=== PATIENT | male | born 1975 | race Caucasian/White ===

== ENCOUNTER 2016-04-26 15:33 | Emergency (ER) | payer OTHER ==
[2016-04-26 15:40] VITALS: BP 133/77; PULSE 77; TEMP 98; BMI 23.6
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
== END 2016-04-26 16:30 | disposition home or self-care (01) ==
LOC: JERFT 15:33
DX: M54.42 Lumbago with sciatica, left side (principal); S16.1XXA Strain of muscle, fascia and tendon at neck level, initial encounter; V43.52XA Car driver injured in collision with other type car in traffic accident, initial encounter; Y93.89 Activity, other specified; Y92.410 Unspecified street and highway as the place of occurrence of the external cause; F17.210 Nicotine dependence, cigarettes, uncomplicated; G89.29 Other chronic pain
CPT/HCPCS: 99281-25

== ENCOUNTER 2017-03-26 11:16 | Emergency (ER) | payer OTHER ==
[2017-03-26 11:21] VITALS: BP 144/89; PULSE 87; TEMP 98.1; BMI 22.9
== END 2017-03-26 11:47 | disposition left against medical advice (07) ==
LOC: JER 11:16
DX: Z53.21 Procedure and treatment not carried out due to patient leaving prior to being seen by health care provider (principal)
CPT/HCPCS: 99281-25

== ENCOUNTER 2018-09-14 09:28 | Emergency (ER) | payer OTHER ==
[2018-09-14 09:34] VITALS: BP 144/95; PULSE 88; TEMP 98.5; BMI 22.2
--- NOTE | 2018-09-14 10:32 | PDOC ---
History of Present Illness - General Chief Complaint: Injury Stated Complaint: LEFT ELBOW PAIN Time Seen by Provider: 09/14/18 09:34 - History of Present Illness Initial Comments: 09/14/18 10:36 43 years old past medical history significant for GI bleed secondary to NSAIDs resents with pain to left elbow. Patient spell from a small ladder onto his left elbow approximately 2 weeks ago no injury sustained initially went to an urgent care where x-rays were performed with no clear fracture dislocation noted. Progressively worsening pain persistent constant worse with movement no alleviating factors. Past History - Past Medical History Allergies/Adverse Reactions: Allergies Allergy/AdvReac Type Severity Reaction Status Date / Time aspirin Allergy Verified 09/14/18 09:29 NSAIDS (Non-Steroidal Allergy Verified 09/14/18 09:29 Anti-Inflamma Home Medications: Ambulatory Orders NK [No Known Home Medication] 04/26/16 COPD: No GI Disorders: Yes (ulcers, diverticulitis) - Surgical History Abdominal Surgery: Yes (colon resection) Neurologic Surgery: Yes (laminectomy, left hand) - Immunization History Immunization Up to Date: Yes - Suicide/Smoking/Psychosocial Hx Smoking Status: Yes Smoking History: Current every day smoker Have you smoked in the past 12 months: Yes Number of Cigarettes Smoked Daily: 20 Information on smoking cessation initiated: Yes Hx Alcohol Use: No Drug/Substance Use Hx: No Substance Use Type: None Review of Systems - Review of Systems Comments:: 09/14/18 10:36 ROS: A complete review of 10 out of 10 review of systems is taken and is negative apart from what is previously mentioned below and in the HPI. *Physical Exam - Vital Signs Last Vital Signs Temp Pulse Resp BP Pulse Ox 98.5 F 88 18 144/95 98 09/14/18 09:28 09/14/18 09:28 09/14/18 09:28 09/14/18 09:28 09/14/18 09:28 - Physical Exam Comments: 09/14/18 10:37 Vitals: Triage Vital signs reviewed General Appearance: no acute distress, well nourished well developed, Head: Atraumatic, Cardiac: Regular rate and rhythym, no murmurs, no rubs, no gallops, Extremities: Full range of motion to all extremities, left elbow bursa swollen and inflamed noninfected no evidence of cellulitis pain with range of motion. Skin: Warm and dry, no rashes or lesions, no rash, no petechiae, neurovascularly intact distally. Neuro: Strength intact to all extremities, Sensation intact to all extremities, gait normal Psych: normal mood, normal affect ED Treatment Course - RADIOLOGY Radiology Studies Ordered: Category Date Time Status ELBOW-LEFT [RAD] Stat Radiology 09/14/18 09:42 Completed Medical Decision Making - Medical Decision Making 09/14/18 10:29 No fracture dislocation noted on x-ray patient with fall onto left elbow with bursitis ALLERGIC to aspirin and NSAIDs only able to take Tylenol for pain we' ll place in splint and provided patient with orthopedic follow-up to obtain an MRI for further evaluation and management Findings, the need for follow-up and strict return instructions discussed with patient. *DC/Admit/Observation/Transfer Diagnosis at time of Disposition: Elbow pain Qualifiers: Laterality: left Qualified Code(s): M25.522 - Pain in left elbow - Discharge Dispostion Disposition: HOME Condition at time of disposition: Stable Decision to Admit order: No - Referrals Referrals: Truman Pandya MD [Staff Physician] - - Patient Instructions Printed Discharge Instructions: Elbow Sprain Additional Instructions: Ice affected area 20 minutes on 20 minutes off. Okay to use a Demian compression wrap. Use splint during the day. Continue to use Tylenol for pain. Today proceed to Dr. Pandya office for follow-up appointment. Return to ED for any concerns. - Post Discharge Activity
== END 2018-09-14 10:45 | disposition home or self-care (01) ==
LOC: FER 09:28
DX: M25.522 Pain in left elbow (principal); F17.210 Nicotine dependence, cigarettes, uncomplicated
CPT/HCPCS: 73070-TC-LT-FY; 99283-25

== ENCOUNTER 2020-05-30 16:46 | Emergency (ER) | payer OTHER ==
[2020-05-30 16:55] VITALS: BP 150/88; PULSE 79; TEMP 97.6; BMI 23.2
[2020-05-30] MEDS ORDERED: METHOCARBAMOL 500 MG TABLET PO ONE (18:33)
[2020-05-30] MEDS ORDERED: METHOCARBAMOL 500 MG TABLET ONE (18:34)
== END 2020-05-30 20:29 | disposition home or self-care (01) ==
LOC: JERFT 16:46
DX: M48.02 Spinal stenosis, cervical region (principal); M54.2 Cervicalgia
CPT/HCPCS: 72125-TC; 99284-25

== ENCOUNTER 2020-06-01 22:28 | Inpatient (IN) | payer OTHER ==
[2020-06-01 22:44] VITALS: BMI 23.6
[2020-06-01] MEDS ORDERED: morphine CARPU-JECT 4 MG/1 ML DISP.SYRIN IVPUSH ONE (23:16)
[2020-06-01] MEDS ORDERED: morphine SULFATE 4 MG/ML VIAL ONE (23:53)
[2020-06-02] MEDS ORDERED: ACETAMINOPHEN 325 MG TABLET (FP) PO PRN (01:16)
[2020-06-02] MEDS ORDERED: morphine SULFATE 4 MG/ML VIAL IVPUSH PRN (01:16)
[2020-06-02] MEDS: NICOTINE 21 MG/24 HOURS TOPICAL PATCH TD SCH ×2 (01:49→09:58)
[2020-06-02] MEDS ORDERED: morphine SULFATE 4 MG/ML VIAL ONE (05:42)
[2020-06-02 05:43] LABS: BASO % 0.6 % (0-2.0); EOS % 3.3 % (0-4.5); HEMATOCRIT 36.5 % (35.4-49); HEMOGLOBIN 12.2 GM/dL (11.7-16.9); LYMPH % 24.1 % (8-40); MCH 30.7 pg (25.7-33.7); MCHC 33.5 g/dl (32.0-35.9); MEAN CELL VOLUME 91.5 fl (80-96); MONO % 9.2 % (3.8-10.2); NEUT % 62.8 % (42.8-82.8); PLATELET COUNT 294 K/MM3 (134-434); RBC 3.98 M/mm3 (4.00-5.60); RDW 14.6 % (11.9-15.9); WHITE BLOOD COUNT 9.4 K/mm3 (4.0-10.0)
[2020-06-02 06:04] LABS: POTASSIUM 4.3 mmol/L (3.5-5.1)
[2020-06-02 06:06] LABS: ALBUMIN 3.5 g/dl (3.4-5.0); BLOOD UREA NITROGEN 15.1 mg/dL (7-18); CALCIUM 9.8 mg/dL (8.5-10.1)
[2020-06-02 06:10] LABS: CREATININE 0.8 mg/dL (0.55-1.3)
[2020-06-02 06:11] LABS: BILIRUBIN,TOTAL 0.2 mg/dL (0.2-1); TOT PROT 5.9 g/dl (6.4-8.2)
[2020-06-02] MEDS ORDERED: ENOXAPARIN NA (PORCINE) 40 MG/0.4 ML DISP.SYRIN SQ ONE (08:44)
[2020-06-02] MEDS ORDERED: PANTOPRAZOLE 40 MG TABLET ONE (08:44)
[2020-06-02] MEDS ORDERED: GENTAMICIN SO4 80 MG/2 ML VIAL ONE (09:46)
[2020-06-02] MEDS ORDERED: THROMBIN (BOVINE) 5,000 UNIT VIAL TP ONE ×3 (09:46→10:44)
[2020-06-02] MEDS: PANTOPRAZOLE 40 MG TABLET PO SCH (09:58)
[2020-06-02] MEDS ORDERED: ENOXAPARIN NA (PORCINE) 40 MG/0.4 ML DISP.SYRIN SQ SCH (10:00)
[2020-06-02] MEDS ORDERED: POLYETHYLENE GLYCOL 3350 119 GM BTL PO SCH (10:00)
[2020-06-02] MEDS ORDERED: PROPOFOL 20 ML ONE (10:30)
[2020-06-02] MEDS ORDERED: LIDOCAINE HCL/PF 2% SDV 5ML VIAL ONE (10:30)
[2020-06-02] MEDS ORDERED: fentaNYL CITRATE 250 MCG/5 ML VIAL ONE (10:30)
[2020-06-02] MEDS ORDERED: MIDAZOLAM HCL 2 MG/2 ML SINGLE DOSE VIAL ONE (10:30)
[2020-06-02] MEDS ORDERED: DEXAMETHASONE SOD PHOSPHATE 4 MG/1 ML VIAL ONE (10:30)
[2020-06-02] MEDS ORDERED: ROCURONIUM BROMIDE 50 MG/5 ML SYRINGE ONE (10:30)
[2020-06-02] MEDS ORDERED: ONDANSETRON 4 MG/2 ML VIAL ONE (10:30)
[2020-06-02] MEDS ORDERED: BACITRACIN 50,000 UNITS VIAL NR ONE (10:31)
[2020-06-02] MEDS ORDERED: GENTAMICIN SO4 80 MG/2 ML VIAL IVPB ONE (10:32)
[2020-06-02] MEDS ORDERED: VANCOMYCIN 1,000 MG VIAL (RESTRICTED TO ID ONLY) ONE (10:43)
[2020-06-02] MEDS ORDERED: ceFAZolin SODIUM 1 GM VIAL ONE (10:43)
[2020-06-02] MEDS ORDERED: ceFAZolin SODIUM 1 GM VIAL IVPB ONE (10:50)
[2020-06-02] MEDS ORDERED: VANCOMYCIN 1,000 MG VIAL (RESTRICTED TO ID ONLY) IVPB ONE (10:50)
[2020-06-02] MEDS ORDERED: TRANEXAMIC ACID 1000 MG/10 ML VIAL ONE (10:51)
[2020-06-02] MEDS ORDERED: PHENYLEPHRINE HCL 10 MG/1 ML SINGLE DOSE VIAL ONE (11:26)
[2020-06-02] MEDS ORDERED: EPHEDRINE SULFATE/0.9% NACL/PF 50 MG/10 ML SYRINGE NR ONE (11:42)
[2020-06-02] MEDS ORDERED: NEOSTIGMINE METHYLSULFATE 0.5 MG/1 ML - 10 ML MDV ONE (12:16)
[2020-06-02] MEDS ORDERED: GLYCOPYRROLATE 0.2 MG/1 ML VIAL ONE (12:16)
[2020-06-02] MEDS ORDERED: oxyCODONE HCL 5 MG TABLET PO PRN ×2 (12:41)
[2020-06-02] MEDS ORDERED: ONDANSETRON 4 MG/2 ML VIAL IVPUSH PRN ×2 (12:41→13:18)
[2020-06-02] MEDS ORDERED: morphine CARPU-JECT 4 MG/1 ML DISP.SYRIN IVPUSH PRN (12:41)
[2020-06-02] MEDS ORDERED: diphenhydrAMINE HCL 25 MG CAPSULE (FP) PO PRN (12:41)
[2020-06-02] MEDS ORDERED: HEPARIN NA (PORCINE) 5,000 UNITS/ML 1ML VIAL SQ SCH (12:45)
[2020-06-02] MEDS ORDERED: LACTATED RINGERS SOLUTION 1,000 ML/1,000 ML INFUS.BAG IV SCH (12:45)
[2020-06-02] MEDS ORDERED: PROMETHAZINE HCL 25 MG/1 ML VIAL IVPUSH PRN (13:18)
[2020-06-02] MEDS ORDERED: LACTATED RINGERS SOLUTION 1,000 ML IV SCH (13:30)
[2020-06-02] MEDS: DOCUSATE SODIUM 100 MG CAPSULE (FP) PO SCH ×2 (14:00→22:11)
[2020-06-02] MEDS ORDERED: LORazepam 2 MG/ML SDV VIAL ONE (14:39)
[2020-06-02] MEDS: LORazepam 2 MG/ML SDV VIAL IVPUSH SCH ×2 (14:40→15:40)
[2020-06-02] MEDS: CEFAZOLIN 1 GM/D5W 1 GM/50 ML BAG IVPB SCH (18:34)
[2020-06-02] MEDS: morphine SULFATE 4 MG/ML VIAL IVPUSH PRN (20:20)
[2020-06-02] MEDS ORDERED: ACETAMINOPHEN 1000 MG/100 ML VIAL (NON FORMULARY) IVPB ONE (21:49)
[2020-06-03] MEDS: CEFAZOLIN 1 GM/D5W 1 GM/50 ML BAG IVPB SCH ×2 (01:29→09:32)
[2020-06-03] MEDS: morphine SULFATE 4 MG/ML VIAL IVPUSH PRN (04:21)
[2020-06-03] MEDS: DOCUSATE SODIUM 100 MG CAPSULE (FP) PO SCH (05:51)
[2020-06-03] MEDS: PANTOPRAZOLE 40 MG TABLET PO SCH (09:33)
[2020-06-03] MEDS: NICOTINE 21 MG/24 HOURS TOPICAL PATCH TD SCH (09:33)
[2020-06-03 09:47] VITALS: BP 136/87; PULSE 91; TEMP 98
[2020-06-03] MEDS ORDERED: ENOXAPARIN NA (PORCINE) 40 MG/0.4 ML DISP.SYRIN SQ SCH (10:00)
[2020-06-03] MEDS ORDERED: FOLIC ACID 1 MG TABLET (FP) PO SCH (10:00)
== END 2020-06-03 11:35 | disposition home or self-care (01) | DRG 472 ==
LOC: JER 22:28 → JERBED 23:24 → J6S 06-02 17:20
PROVIDERS: ADMIT Internal Medicine; ATTEND Family Medicine
PROC: 0RB30ZZ Excision of Cervical Vertebral Disc, Open Approach (ICD-10-PCS; 2020-06-02)
PROC: 0PS304Z Reposition Cervical Vertebra with Internal Fixation Device, Open Approach (ICD-10-PCS; 2020-06-02)
PROC: 01N10ZZ Release Cervical Nerve, Open Approach (ICD-10-PCS; 2020-06-02)
PROC: B01BZZZ Fluoroscopy of Spinal Cord (ICD-10-PCS; 2020-06-02)
PROC: 4A1004G Monitoring of Central Nervous Electrical Activity, Intraoperative, Open Approach (ICD-10-PCS; 2020-06-02)
PROC: 0RG10A0 Fusion of Cervical Vertebral Joint with Interbody Fusion Device, Anterior Approach, Anterior Column, Open Approach (ICD-10-PCS; principal; 2020-06-02 08:30)
DX: M47.12 Other spondylosis with myelopathy, cervical region (principal); M50.03 Cervical disc disorder with myelopathy, cervicothoracic region; M40.292 Other kyphosis, cervical region; M50.13 Cervical disc disorder with radiculopathy, cervicothoracic region
CPT/HCPCS: 36415; 71046-TC-FY; 72125-TC; 76000-TC-FY; 80053; 85025; 86850; 86900; 86901; 94760; 97116-GP; 97161-GP; 99285-25; C9803; J0131; U0003; U0005

== ENCOUNTER 2021-08-12 11:39 | Emergency (ER) | payer OTHER ==
[2021-08-12 12:02] VITALS: BMI 21.5
[2021-08-12] MEDS ORDERED: LIDOCAINE 5% TOPICAL PATCH TP ONE (13:28)
[2021-08-12] MEDS ORDERED: LIDOCAINE 5% TOPICAL PATCH ONE (13:36)
[2021-08-12 15:58] VITALS: BP 118/62; PULSE 81; TEMP 98.2
[2021-08-12] MEDS ORDERED: LIDOCAINE PATCH REMOVAL MC SCH (22:00)
== END 2021-08-12 15:58 | disposition home or self-care (01) ==
LOC: JER 11:39 → JERFT 11:39
DX: M54.2 Cervicalgia (principal)
CPT/HCPCS: 72050-TC-FY; 72100-TC-FY; 72125-TC; 72131-TC; 99285-25

== ENCOUNTER 2021-08-21 19:42 | Emergency (ER) | payer OTHER ==
[2021-08-21 20:14] VITALS: BP 131/88; PULSE 72; TEMP 98.1; BMI 25.5
[2021-08-21] MEDS ORDERED: ACETAMINOPHEN 325 MG TABLET (FP) ONE (20:46)
[2021-08-21] MEDS: ACETAMINOPHEN 500 MG TABLET (FP) PO ONE ×2 (20:48→21:15)
== END 2021-08-21 23:39 | disposition home or self-care (01) ==
LOC: JER 19:42
DX: M54.50 Low back pain, unspecified (principal); V89.2XXA Person injured in unspecified motor-vehicle accident, traffic, initial encounter
CPT/HCPCS: 70450-TC; 71046-TC-FY; 72125-TC; 72128-TC; 72131-TC; 72170-TC-FY; 99285-25

== ENCOUNTER 2021-09-17 12:56 | Inpatient (IN) | payer OTHER ==
[2021-09-17] MEDS ORDERED: morphine CARPU-JECT 4 MG/1 ML DISP.SYRIN IVPUSH ONE ×2 (15:35→19:38)
[2021-09-17] MEDS ORDERED: morphine SULFATE 4 MG/ML VIAL ONE ×2 (16:10→19:40)
[2021-09-17 16:17] LABS: BASO % 0.6 % (0-2.0); EOS % 1.4 % (0-4.5); HEMATOCRIT 39.8 % (35.4-49); HEMOGLOBIN 13.5 GM/dL (11.7-16.9); MCH 32.5 pg (25.7-33.7); MCHC 33.9 g/dl (32.0-35.9); MEAN CELL VOLUME 95.6 fl (80-96); MEAN PLT VOLUME 7.7 fl (7.5-11.1); MONO % 5.9 % (3.8-10.2); NEUT % 74.1 % (42.8-82.8); PLATELET COUNT 270 10^3/uL (134-434); RBC 4.16 M/mm3 (4.00-5.60); RDW 13.9 % (11.9-15.9); WHITE BLOOD COUNT 10.9 K/mm3 (4.0-10.0)
[2021-09-17 16:40] LABS: CHLORIDE 109 mmol/L (98-107); SODIUM 140 mmol/L (136-145)
[2021-09-17 16:42] LABS: CALCIUM 8.9 mg/dL (8.5-10.1)
[2021-09-17 16:43] LABS: ALBUMIN 3.6 g/dl (3.4-5.0); CO2 28 mmol/L (21-32); GLUCOSE,RANDOM 73 mg/dL (74-106)
[2021-09-17 16:46] LABS: CREATININE 0.8 mg/dL (0.55-1.3)
[2021-09-17 16:47] LABS: BILIRUBIN,TOTAL 0.2 mg/dL (0.2-1); TOT PROT 6.6 g/dl (6.4-8.2)
[2021-09-17 16:48] LABS: ALK PHOS 64 U/L (45-117)
[2021-09-17 17:09] LABS: ANION GAP 3 MMOL/L (8-16); SGOT/AST 56 U/L (15-37); SGPT/ALT 20 U/L (13-61)
[2021-09-17 17:45] LABS: PH,URINE 5.5 (5.0-8.0); URINE APPEARANCE CLEAR; URINE BILIRUBIN NEGATIVE (NEGATIVE); URINE COLOR YELLOW; URINE GLUCOSE (UA) NEGATIVE (NEGATIVE); URINE KETONE NEGATIVE (NEGATIVE); URINE LEUK ESTERASE NEGATIVE (NEGATIVE); URINE NITRITE NEGATIVE (NEGATIVE); URINE PROTEIN NEGATIVE (NEGATIVE); URINE UROBILINOGEN 0.2 mg/dL (0.2-1.0)
[2021-09-17 18:04] LABS: CALCIUM 8.8 mg/dL (8.5-10.1)
[2021-09-17 18:08] LABS: CREATININE 0.6 mg/dL (0.55-1.3)
[2021-09-17] MEDS ORDERED: POLYETHYLENE GLYCOL (HEALTHYLAX) 3350 17 GM PACKET PO PRN (20:40)
[2021-09-17] MEDS ORDERED: ACETAMINOPHEN 1000 MG/100 ML BAG IVPB PRN (20:48)
[2021-09-18] MEDS ORDERED: NICOTINE POLACRILEX 2 MG GUM BUC PRN (01:24)
[2021-09-18] MEDS: DEXTROSE 5%-NORMAL SALINE 1,000 ML IV SCH (02:09)
[2021-09-18] MEDS: NICOTINE 21 MG/24 HOURS TOPICAL PATCH TD SCH (02:09)
[2021-09-18 05:40] VITALS: BMI 22.0
[2021-09-18 09:07] LABS: BASO % 0.7 % (0-2.0); EOS % 3.1 % (0-4.5); HEMOGLOBIN 13.9 GM/dL (11.7-16.9); LYMPH % 27.6 % (8-40); MEAN CELL VOLUME 96.9 fl (80-96); MEAN PLT VOLUME 8.4 fl (7.5-11.1); MONO % 9.1 % (3.8-10.2); NEUT % 59.5 % (42.8-82.8); PLATELET COUNT 294 10^3/uL (134-434); RBC 4.33 M/mm3 (4.00-5.60); RDW 13.8 % (11.9-15.9); WHITE BLOOD COUNT 6.9 K/mm3 (4.0-10.0)
[2021-09-18 09:10] LABS: INR 0.86 (0.83-1.09); PROTHROMBIN TIME (PATIENT) 9.9 SEC (9.7-13.0)
[2021-09-18 09:13] LABS: ACTIVATED PTT 36.7 SECONDS (25.2-36.5)
[2021-09-18] MEDS: PANTOPRAZOLE 40 MG TABLET PO SCH (09:20)
[2021-09-18 09:55] LABS: MAGNESIUM 2.3 mg/dL (1.8-2.4)
[2021-09-18 09:57] LABS: PHOSPHOROUS 3.3 mg/dL (2.5-4.9)
[2021-09-18 09:58] LABS: BLOOD UREA NITROGEN 12.6 mg/dL (7-18); CREATININE 0.6 mg/dL (0.55-1.3)
[2021-09-18] MEDS: HYDROmorphone HCl 2 MG/ML VIAL IVPB PRN ×2 (17:31→23:26)
[2021-09-18] MEDS ORDERED: ACETAMINOPHEN 325 MG TABLET (FP) PO PRN (20:40)
[2021-09-18] MEDS: DOCUSATE SODIUM 100 MG CAPSULE (FP) PO SCH (21:38)
[2021-09-19] MEDS: NICOTINE 21 MG/24 HOURS TOPICAL PATCH TD SCH (01:29)
[2021-09-19] MEDS: DEXTROSE 5%-NORMAL SALINE 1,000 ML IV SCH (05:00)
[2021-09-19] MEDS: HYDROmorphone HCl 2 MG/ML VIAL IVPB PRN ×3 (06:45→18:38)
[2021-09-19] MEDS: PANTOPRAZOLE 40 MG TABLET PO SCH (10:42)
[2021-09-19] MEDS: DOCUSATE SODIUM 100 MG CAPSULE (FP) PO SCH (23:21)
[2021-09-20] MEDS: DEXTROSE 5%-NORMAL SALINE 1,000 ML IV SCH (01:30)
[2021-09-20] MEDS: NICOTINE 21 MG/24 HOURS TOPICAL PATCH TD SCH (01:31)
[2021-09-20] MEDS: HYDROmorphone HCl 2 MG/ML VIAL IVPB PRN ×2 (01:47→08:25)
[2021-09-20] MEDS ORDERED: THROMBIN (BOVINE) 20,000 UNIT VIAL TP ONE (07:48)
[2021-09-20] MEDS ORDERED: BUPIVACAINE HCL/PF 0.25% (2.5MG/ML) 10 ML VIAL ONE (07:48)
[2021-09-20] MEDS ORDERED: ceFAZolin SODIUM 1 GM VIAL ONE ×2 (07:48→14:57)
[2021-09-20] MEDS ORDERED: BACITRACIN 15 GM TUBE TOPICAL OINTMENT ONE (07:48)
[2021-09-20] MEDS ORDERED: oxyCODONE HCL 5 MG TABLET PO PRN (09:47)
[2021-09-20 09:50] LABS: BLOOD UREA NITROGEN 10.5 mg/dL (7-18)
[2021-09-20 09:51] LABS: CALCIUM 9.2 mg/dL (8.5-10.1)
[2021-09-20 09:54] LABS: CREATININE 0.7 mg/dL (0.55-1.3)
[2021-09-20] MEDS ORDERED: PROPOFOL 20 ML ONE ×16 (10:02→13:57)
[2021-09-20] MEDS ORDERED: ONDANSETRON 4 MG/2 ML VIAL ONE (10:02)
[2021-09-20] MEDS ORDERED: LIDOCAINE HCL/PF 2% SDV 5ML VIAL ONE (10:02)
[2021-09-20] MEDS ORDERED: DEXAMETHASONE SOD PHOSPHATE 4 MG/1 ML VIAL ONE (10:02)
[2021-09-20] MEDS ORDERED: ROCURONIUM BROMIDE 50 MG/5 ML SYRINGE ONE (10:03)
[2021-09-20] MEDS ORDERED: MIDAZOLAM HCL 2 MG/2 ML SINGLE DOSE VIAL ONE ×3 (10:03→10:30)
[2021-09-20] MEDS ORDERED: SUCCINYLCHOLINE CHLORIDE 200 MG/10 ML SYRINGE ONE (10:03)
[2021-09-20] MEDS: PANTOPRAZOLE 40 MG TABLET PO SCH (10:05)
[2021-09-20] MEDS ORDERED: DEXMEDETOMIDINE HCL 200 MCG/2 ML IVPB ONE (10:25)
[2021-09-20] MEDS ORDERED: ACETAMINOPHEN INJECTION 100 ML IVPB ONE (10:25)
[2021-09-20] MEDS ORDERED: KETAMINE HCL 200 MG/20 ML VIAL ONE (10:30)
[2021-09-20] MEDS ORDERED: THROMBIN (BOVINE) 5,000 UNIT VIAL TP ONE (11:00)
[2021-09-20] MEDS ORDERED: ceFAZolin SODIUM 1 GM VIAL IVPB ONE ×4 (11:30→15:12)
[2021-09-20] MEDS ORDERED: FENTANYL CITRATE/PF 50 MCG/ML VIAL ONE ×2 (15:58→16:08)
[2021-09-20] MEDS ORDERED: ONDANSETRON 4 MG/2 ML VIAL IVPUSH PRN ×2 (16:10→18:03)
[2021-09-20] MEDS ORDERED: HYDROmorphone *PCA* 10MG/50ML DISP.SYRIN PCA SCH (16:15)
[2021-09-20] MEDS ORDERED: LACTATED RINGERS SOLUTION 1,000 ML IV SCH (16:15)
[2021-09-20] MEDS ORDERED: HYDROmorphone *PCA* 10MG/50ML DISP.SYRIN ONE (16:17)
[2021-09-20] MEDS ORDERED: POLYETHYLENE GLYCOL (HEALTHYLAX) 3350 17 GM PACKET PO PRN (18:03)
[2021-09-20] MEDS ORDERED: ACETAMINOPHEN 325 MG TABLET (FP) PO PRN (18:03)
[2021-09-20] MEDS ORDERED: NICOTINE POLACRILEX 2 MG GUM BUC PRN (18:03)
[2021-09-20] MEDS ORDERED: ACETAMINOPHEN 1000 MG/100 ML BAG IVPB ONE (18:57)
[2021-09-20] MEDS: DOCUSATE SODIUM 100 MG CAPSULE (FP) PO SCH (22:28)
[2021-09-21] MEDS: LACTATED RINGERS SOLUTION 1,000 ML IV SCH ×2 (01:27→09:32)
[2021-09-21] MEDS: HYDROmorphone *PCA* 10MG/50ML DISP.SYRIN PCA SCH ×3 (01:29→09:33)
[2021-09-21] MEDS ORDERED: NICOTINE 21 MG/24 HOURS TOPICAL PATCH TD SCH (02:00)
[2021-09-21] MEDS: PANTOPRAZOLE 40 MG TABLET PO SCH (09:32)
[2021-09-21] MEDS: NICOTINE 21 MG/24 HOURS TOPICAL PATCH TD SCH (09:32)
[2021-09-21] MEDS ORDERED: ACETAMINOPHEN 1000 MG/100 ML BAG IVPB ONE (11:45)
[2021-09-21] MEDS: oxyCODONE HCL 5 MG TABLET PO PRN ×3 (11:46→19:52)
[2021-09-21] MEDS: KETOROLAC TROMETHAMINE 15 MG/ML VIAL IVPUSH SCH ×2 (12:37→21:17)
[2021-09-21] MEDS: DOCUSATE SODIUM 100 MG CAPSULE (FP) PO SCH (21:19)
[2021-09-22] MEDS: oxyCODONE HCL 5 MG TABLET PO PRN ×10 (00:50→23:56)
[2021-09-22] MEDS: KETOROLAC TROMETHAMINE 15 MG/ML VIAL IVPUSH SCH (05:23)
[2021-09-22] MEDS: NICOTINE 21 MG/24 HOURS TOPICAL PATCH TD SCH (09:09)
[2021-09-22] MEDS: PANTOPRAZOLE 40 MG TABLET PO SCH (14:32)
[2021-09-22] MEDS: DOCUSATE SODIUM 100 MG CAPSULE (FP) PO SCH (21:28)
[2021-09-23] MEDS: oxyCODONE HCL 5 MG TABLET PO PRN ×5 (04:20→15:11)
[2021-09-23] MEDS: PANTOPRAZOLE 40 MG TABLET PO SCH (10:07)
[2021-09-23] MEDS: NICOTINE 21 MG/24 HOURS TOPICAL PATCH TD SCH (10:07)
[2021-09-23] MEDS ORDERED: METHOCARBAMOL 500 MG TABLET PO PRN (13:28)
[2021-09-23 15:30] VITALS: BP 134/88; PULSE 95; TEMP 98.9
== END 2021-09-23 16:40 | disposition home or self-care (01) | DRG 304 ==
LOC: JER 12:56 → JERFT 12:56 → JERBED 20:54 → J7W 09-18 01:13
PROVIDERS: ADMIT Hospitalist; ATTEND Family Medicine
PROC: 0SG0071 Fusion of Lumbar Vertebral Joint with Autologous Tissue Substitute, Posterior Approach, Posterior Column, Open Approach (ICD-10-PCS; 2021-09-20)
PROC: 0SG30AJ Fusion of Lumbosacral Joint with Interbody Fusion Device, Posterior Approach, Anterior Column, Open Approach (ICD-10-PCS; 2021-09-20)
PROC: 0SG3071 Fusion of Lumbosacral Joint with Autologous Tissue Substitute, Posterior Approach, Posterior Column, Open Approach (ICD-10-PCS; 2021-09-20)
PROC: 0SB20ZZ Excision of Lumbar Vertebral Disc, Open Approach (ICD-10-PCS; 2021-09-20)
PROC: 0SB40ZZ Excision of Lumbosacral Disc, Open Approach (ICD-10-PCS; 2021-09-20)
PROC: 01NB0ZZ Release Lumbar Nerve, Open Approach (ICD-10-PCS; 2021-09-20)
PROC: 4A1004G Monitoring of Central Nervous Electrical Activity, Intraoperative, Open Approach (ICD-10-PCS; 2021-09-20)
PROC: 0SG00AJ Fusion of Lumbar Vertebral Joint with Interbody Fusion Device, Posterior Approach, Anterior Column, Open Approach (ICD-10-PCS; principal; 2021-09-20 10:30)
DX: M51.17 Intervertebral disc disorders with radiculopathy, lumbosacral region (principal); F17.210 Nicotine dependence, cigarettes, uncomplicated; J41.0 Simple chronic bronchitis
CPT/HCPCS: 36415; 71046-TC-FY; 72100-TC-FY; 72148-TC; 80048; 80053; 81003; 83735; 84100; 85025; 85610; 85730; 86850; 86900; 86901; 87086; 93005; 93010; 94760; 97116-GP; 97162-GP; 99285-25; C9803-CS; U0003; U0005

== ENCOUNTER 2021-12-30 14:40 | Emergency (ER) | payer OTHER ==
[2021-12-30 14:45] VITALS: BP 115/77; PULSE 81; RESP 18; TEMP 98.1; BMI 21.5
[2021-12-30] MEDS ORDERED: morphine CARPU-JECT 4 MG/1 ML DISP.SYRIN IVPUSH ONE (15:26)
[2021-12-30] MEDS ORDERED: morphine SULFATE 4 MG/ML VIAL ONE (15:36)
[2021-12-30 16:05] LABS: BASO % 0.7 % (0-2.0); EOS % 0.7 % (0-4.5); HEMATOCRIT 38.7 % (35.4-49); HEMOGLOBIN 12.5 GM/dL (11.7-16.9); LYMPH % 16.2 % (8-40); MCH 28.5 pg (25.7-33.7); MCHC 32.2 g/dl (32.0-35.9); MEAN CELL VOLUME 88.3 fl (80-96); MEAN PLT VOLUME 7.5 fl (7.5-11.1); MONO % 5.6 % (3.8-10.2); NEUT % 76.8 % (42.8-82.8); PLATELET COUNT 359 10^3/uL (134-434); RBC 4.38 M/mm3 (4.00-5.60); RDW 16.1 % (11.9-15.9); WHITE BLOOD COUNT 9.7 K/mm3 (4.0-10.0)
[2021-12-30 16:25] LABS: CALCIUM 9.2 mg/dL (8.5-10.1)
[2021-12-30 16:27] LABS: ALBUMIN 3.5 g/dl (3.4-5.0); BLOOD UREA NITROGEN 18.2 mg/dL (7-18)
[2021-12-30 16:29] LABS: CREATININE 0.8 mg/dL (0.55-1.3)
[2021-12-30 16:31] LABS: BILIRUBIN,TOTAL 0.1 mg/dL (0.2-1); TOT PROT 6.4 g/dl (6.4-8.2)
== END 2021-12-30 20:26 | disposition left against medical advice (07) ==
LOC: JERFT 14:40 → JER 14:40 → JERFT 20:26
PROC: 3E033GC Introduction of Other Therapeutic Substance into Peripheral Vein, Percutaneous Approach (ICD-10-PCS; principal; 2021-12-30)
DX: M54.6 Pain in thoracic spine (principal)
CPT/HCPCS: 36415; 72082-TC-FY; 72128-TC; 72131-TC; 80053; 85025; 99285-25

== ENCOUNTER 2022-01-25 04:28 | Inpatient (IN) | payer OTHER ==
[2022-01-24 09:14] VITALS: BMI 22.9
[2022-01-25] MEDS ORDERED: PROPOFOL 20 ML ONE ×3 (07:24→11:14)
[2022-01-25] MEDS ORDERED: HYDROmorphone HCl 2 MG/ML VIAL ONE (07:24)
[2022-01-25] MEDS ORDERED: FENTANYL CITRATE/PF 50 MCG/ML VIAL ONE ×4 (07:24→15:19)
[2022-01-25] MEDS ORDERED: MIDAZOLAM HCL 2 MG/2 ML SINGLE DOSE VIAL ONE ×3 (07:24→11:39)
[2022-01-25] MEDS ORDERED: PROPOFOL 60 ML ONE ×3 (07:31→12:31)
[2022-01-25] MEDS ORDERED: LIDOCAINE HCL/PF 2% SDV 5ML VIAL ONE (07:39)
[2022-01-25] MEDS ORDERED: SUCCINYLCHOLINE CHLORIDE 200 MG/10 ML SYRINGE ONE (07:40)
[2022-01-25] MEDS ORDERED: ceFAZolin SODIUM 1 GM VIAL ONE ×3 (07:43→12:07)
[2022-01-25] MEDS ORDERED: KETAMINE HCL 500 MG/10 ML VIAL ONE (08:01)
[2022-01-25] MEDS ORDERED: ceFAZolin SODIUM 1 GM VIAL IVPB ONE ×2 (08:50→09:22)
[2022-01-25] MEDS ORDERED: PROPOFOL 80 ML ONE (09:06)
[2022-01-25] MEDS ORDERED: ONDANSETRON 4 MG/2 ML VIAL ONE (09:11)
[2022-01-25] MEDS ORDERED: DEXAMETHASONE SOD PHOSPHATE 4 MG/1 ML VIAL ONE (09:11)
[2022-01-25] MEDS ORDERED: PHENYLEPHRINE HCL 10 MG/1 ML SINGLE DOSE VIAL ONE (11:29)
[2022-01-25] MEDS ORDERED: PROPOFOL 40 ML ONE (11:49)
[2022-01-25] MEDS ORDERED: ONDANSETRON 4 MG/2 ML VIAL IVPUSH PRN ×2 (12:32→14:18)
[2022-01-25] MEDS ORDERED: LACTATED RINGERS SOLUTION 1,000 ML IV SCH ×2 (12:45→14:18)
[2022-01-25] MEDS ORDERED: oxyCODONE HCL 5 MG TABLET PO PRN ×4 (13:51→16:49)
[2022-01-25] MEDS ORDERED: morphine CARPU-JECT 4 MG/1 ML DISP.SYRIN IVPUSH PRN ×2 (13:51→14:18)
[2022-01-25] MEDS ORDERED: DOCUSATE SODIUM 100 MG CAPSULE (FP) PO SCH (14:00)
[2022-01-25] MEDS ORDERED: LACTATED RINGERS SOLUTION 1,000 ML/1,000 ML INFUS.BAG IV SCH ×2 (14:00→14:18)
[2022-01-25] MEDS ORDERED: ACETAMINOPHEN INJECTION 100 ML IVPB ONE (14:56)
[2022-01-25] MEDS ORDERED: ACETAMINOPHEN 1000 MG/100 ML BAG IVPB ONE (14:59)
[2022-01-25] MEDS ORDERED: HYDROmorphone *PCA* 10MG/50ML DISP.SYRIN ONE (16:27)
[2022-01-25] MEDS ORDERED: HYDROmorphone *PCA* 10MG/50ML DISP.SYRIN PCA ONE (16:34)
[2022-01-25] MEDS: oxyCODONE HCL 5 MG TABLET PO PRN ×4 (17:22→22:16)
[2022-01-25] MEDS: ACETAMINOPHEN 1000 MG/100 ML BAG IVPB SCH ×2 (17:55→23:36)
[2022-01-25] MEDS ORDERED: HYDROmorphone HCl 2 MG/ML VIAL IVPUSH ONE (17:57)
[2022-01-25] MEDS ORDERED: ceFAZolin 2 GRAM PREMIX BAG IVPB SCH ×2 (21:00)
[2022-01-25] MEDS ORDERED: MUPIROCIN 2% TOPICAL OINTMENT FOR DECOLONIZATION NS SCH (22:00)
[2022-01-25] MEDS ORDERED: CHLORHEXIDINE GLUCONATE 4% CLEANSER FOR DECOLONIZATION TP SCH (22:00)
[2022-01-25 22:06] LABS: BASO % 0.4 % (0-2.0); HEMATOCRIT 24.2 % (35.4-49); INR 1.12 (0.83-1.09); LYMPH % 10.2 % (8-40); MCH 28.7 pg (25.7-33.7); MCHC 33.2 g/dl (32.0-35.9); MEAN CELL VOLUME 86.4 fl (80-96); MEAN PLT VOLUME 8.2 fl (7.5-11.1); MONO % 7.7 % (3.8-10.2); NEUT % 81.7 % (42.8-82.8); PLATELET COUNT 209 10^3/uL (134-434); PROTHROMBIN TIME (PATIENT) 12.9 SEC (9.7-13.0); RDW 15.7 % (11.9-15.9); WHITE BLOOD COUNT 12.7 K/mm3 (4.0-10.0)
[2022-01-25] MEDS: CEFAZOLIN SODIUM 2 GM in DEXTROSE 5%-WATER 100 ML IVPB SCH (22:10)
[2022-01-25] MEDS: MUPIROCIN 2% TOPICAL OINTMENT FOR DECOLONIZATION NS SCH (22:10)
[2022-01-25] MEDS: DOCUSATE SODIUM 100 MG CAPSULE (FP) PO SCH (22:10)
[2022-01-25] MEDS: diazePAM 5 MG TABLET PO SCH (22:11)
[2022-01-25] MEDS: CHLORHEXIDINE GLUCONATE 4% CLEANSER FOR DECOLONIZATION TP SCH (22:11)
[2022-01-25 22:22] LABS: BLOOD UREA NITROGEN 11.3 mg/dL (7-18); CALCIUM 7.7 mg/dL (8.5-10.1); MAGNESIUM 1.9 mg/dL (1.8-2.4)
[2022-01-25 22:25] LABS: CREATININE 0.6 mg/dL (0.55-1.3)
[2022-01-25 22:26] LABS: PHOSPHOROUS 3.2 mg/dL (2.5-4.9)
[2022-01-25] MEDS: NICOTINE 14 MG/24 HOURS TOPICAL PATCH TD SCH (23:06)
[2022-01-26] MEDS: oxyCODONE HCL 5 MG TABLET PO PRN ×7 (00:58→22:56)
[2022-01-26] MEDS ORDERED: HYDROmorphone HCL CARPU-JECT 2 MG/1 ML DISP.SYRIN IVPB PRN (03:44)
[2022-01-26] MEDS: HYDROmorphone HCl 2 MG/ML VIAL IVPUSH PRN ×4 (04:00→20:05)
[2022-01-26] MEDS: DOCUSATE SODIUM 100 MG CAPSULE (FP) PO SCH ×3 (06:02→22:57)
[2022-01-26] MEDS: CEFAZOLIN SODIUM 2 GM in DEXTROSE 5%-WATER 100 ML IVPB SCH (06:02)
[2022-01-26] MEDS: ACETAMINOPHEN 1000 MG/100 ML BAG IVPB SCH ×2 (06:03→11:51)
[2022-01-26 07:27] LABS: HEMATOCRIT 23.5 % (35.4-49); HEMOGLOBIN 7.9 GM/dL (11.7-16.9); MCH 29.3 pg (25.7-33.7); MCHC 33.6 g/dl (32.0-35.9); MEAN CELL VOLUME 87.2 fl (80-96); MEAN PLT VOLUME 8.1 fl (7.5-11.1); PLATELET COUNT 227 10^3/uL (134-434); WHITE BLOOD COUNT 11.5 K/mm3 (4.0-10.0)
[2022-01-26 07:36] LABS: CALCIUM 7.8 mg/dL (8.5-10.1)
[2022-01-26 07:37] LABS: BLOOD UREA NITROGEN 10.6 mg/dL (7-18)
[2022-01-26 07:40] LABS: CREATININE 0.7 mg/dL (0.55-1.3)
[2022-01-26] MEDS: diazePAM 5 MG TABLET PO SCH ×3 (09:16→22:57)
[2022-01-26] MEDS: FERROUS SO4 325 MG TABLET (FP) PO SCH (09:27)
[2022-01-26] MEDS: NICOTINE 14 MG/24 HOURS TOPICAL PATCH TD SCH (09:27)
[2022-01-26] MEDS: PANTOPRAZOLE 40 MG TABLET PO SCH (09:28)
[2022-01-26] MEDS ORDERED: HYDROmorphone HCl 2 MG/ML VIAL IVPUSH PRN (09:32)
[2022-01-26] MEDS: MUPIROCIN 2% TOPICAL OINTMENT FOR DECOLONIZATION NS SCH ×2 (09:43→22:59)
[2022-01-26] MEDS ORDERED: FERROUS SO4 325 MG TABLET (FP) PO SCH (10:00)
[2022-01-26] MEDS ORDERED: oxyCODONE HCL 10 MG SUSTAINED ACTING TABLET PO ONE (14:48)
[2022-01-26] MEDS ORDERED: oxyCODONE HCL 5 MG TABLET PO PRN ×2 (14:48)
[2022-01-26] MEDS: CHLORHEXIDINE GLUCONATE 4% CLEANSER FOR DECOLONIZATION TP SCH (22:57)
[2022-01-27] MEDS: HYDROmorphone HCl 2 MG/ML VIAL IVPUSH PRN ×4 (00:51→13:00)
[2022-01-27] MEDS: oxyCODONE HCL 5 MG TABLET PO PRN ×5 (03:05→22:39)
[2022-01-27] MEDS: diazePAM 5 MG TABLET PO SCH ×3 (05:40→22:39)
[2022-01-27] MEDS: DOCUSATE SODIUM 100 MG CAPSULE (FP) PO SCH ×3 (05:40→22:39)
[2022-01-27 06:46] LABS: HEMATOCRIT 20.8 % (35.4-49); MCH 29.2 pg (25.7-33.7); MCHC 33.7 g/dl (32.0-35.9); MEAN CELL VOLUME 86.6 fl (80-96); MEAN PLT VOLUME 8.1 fl (7.5-11.1); PLATELET COUNT 198 10^3/uL (134-434); WHITE BLOOD COUNT 11.8 K/mm3 (4.0-10.0)
[2022-01-27 07:09] LABS: ALBUMIN 2.4 g/dl (3.4-5.0); BLOOD UREA NITROGEN 7.2 mg/dL (7-18)
[2022-01-27 07:12] LABS: CREATININE 0.5 mg/dL (0.55-1.3)
[2022-01-27 07:15] LABS: BILIRUBIN,TOTAL 0.2 mg/dL (0.2-1); TOT PROT 4.6 g/dl (6.4-8.2)
[2022-01-27] MEDS: PANTOPRAZOLE 40 MG TABLET PO SCH (09:36)
[2022-01-27] MEDS: FERROUS SO4 325 MG TABLET (FP) PO SCH (09:37)
[2022-01-27] MEDS: MUPIROCIN 2% TOPICAL OINTMENT FOR DECOLONIZATION NS SCH ×2 (11:00→22:28)
[2022-01-27] MEDS: NICOTINE 14 MG/24 HOURS TOPICAL PATCH TD SCH (13:10)
[2022-01-27] MEDS ORDERED: HYDROmorphone HCl 2 MG/ML VIAL IVPUSH PRN (16:01)
[2022-01-27] MEDS: CHLORHEXIDINE GLUCONATE 4% CLEANSER FOR DECOLONIZATION TP SCH (22:28)
[2022-01-28] MEDS: HYDROmorphone HCl 2 MG/ML VIAL IVPB PRN ×5 (01:11→19:47)
[2022-01-28] MEDS: oxyCODONE HCL 5 MG TABLET PO PRN ×4 (03:07→18:13)
[2022-01-28] MEDS: DOCUSATE SODIUM 100 MG CAPSULE (FP) PO SCH (05:37)
[2022-01-28] MEDS: diazePAM 5 MG TABLET PO SCH ×3 (05:37→21:44)
[2022-01-28] MEDS ORDERED: oxyCODONE HCL 5 MG TABLET PO PRN ×2 (07:42)
[2022-01-28] MEDS: FERROUS SO4 325 MG TABLET (FP) PO SCH (09:29)
[2022-01-28] MEDS: PANTOPRAZOLE 40 MG TABLET PO SCH (09:29)
[2022-01-28] MEDS: NICOTINE 14 MG/24 HOURS TOPICAL PATCH TD SCH (09:30)
[2022-01-28] MEDS ORDERED: MUPIROCIN 2% TOPICAL OINTMENT FOR DECOLONIZATION NS SCH (10:00)
[2022-01-28 11:11] LABS: HEMATOCRIT 19.7 % (35.4-49); MCH 29.4 pg (25.7-33.7); MCHC 33.7 g/dl (32.0-35.9); MEAN CELL VOLUME 87.2 fl (80-96); MEAN PLT VOLUME 8.4 fl (7.5-11.1); PLATELET COUNT 243 10^3/uL (134-434); RBC 2.25 M/mm3 (4.00-5.60); RDW 16.2 % (11.9-15.9); WHITE BLOOD COUNT 10.9 K/mm3 (4.0-10.0)
[2022-01-28 11:31] LABS: HEMOGLOBIN 6.6 GM/dL (11.7-16.9)
[2022-01-28 11:34] LABS: PHOSPHOROUS 2.1 mg/dL (2.5-4.9)
[2022-01-28 11:36] LABS: CREATININE 0.6 mg/dL (0.55-1.3)
[2022-01-28 11:41] LABS: CALCIUM 8.1 mg/dL (8.5-10.1)
[2022-01-28] MEDS ORDERED: DOCUSATE SODIUM 100 MG CAPSULE (FP) PO SCH (14:00)
[2022-01-28] MEDS ORDERED: CHLORHEXIDINE GLUCONATE 4% CLEANSER FOR DECOLONIZATION TP SCH (22:00)
[2022-01-29] MEDS ORDERED: HYDROmorphone HCl 2 MG/ML VIAL IVPB ONE (00:57)
[2022-01-29] MEDS: oxyCODONE HCL 5 MG TABLET PO PRN ×3 (03:49→12:51)
[2022-01-29] MEDS: diazePAM 5 MG TABLET PO SCH ×2 (05:57→13:45)
[2022-01-29] MEDS: PANTOPRAZOLE 40 MG TABLET PO SCH (10:29)
[2022-01-29] MEDS: FERROUS SO4 325 MG TABLET (FP) PO SCH (10:29)
[2022-01-29] MEDS: NICOTINE 14 MG/24 HOURS TOPICAL PATCH TD SCH (10:29)
[2022-01-29 14:22] VITALS: BP 147/89; PULSE 94; RESP 20; TEMP 98.8
[2022-01-29 16:39] LABS: BASO % 0.6 % (0-2.0); EOS % 3.5 % (0-4.5); HEMATOCRIT 24.3 % (35.4-49); HEMOGLOBIN 8.1 GM/dL (11.7-16.9); LYMPH % 23.6 % (8-40); MCH 28.6 pg (25.7-33.7); MCHC 33.3 g/dl (32.0-35.9); MEAN CELL VOLUME 85.7 fl (80-96); MEAN PLT VOLUME 7.8 fl (7.5-11.1); MONO % 11.9 % (3.8-10.2); NEUT % 60.4 % (42.8-82.8); PLATELET COUNT 381 10^3/uL (134-434); RBC 2.83 M/mm3 (4.00-5.60); RDW 17.8 % (11.9-15.9)
[2022-01-29 17:07] LABS: CALCIUM 8.6 mg/dL (8.5-10.1)
[2022-01-29 17:08] LABS: ALBUMIN 2.5 g/dl (3.4-5.0); BLOOD UREA NITROGEN 9.8 mg/dL (7-18)
[2022-01-29 17:11] LABS: CREATININE 0.7 mg/dL (0.55-1.3)
[2022-01-29 17:12] LABS: TOT PROT 5.5 g/dl (6.4-8.2)
[2022-01-29 17:13] LABS: BILIRUBIN,TOTAL 0.2 mg/dL (0.2-1)
== END 2022-01-29 18:20 | disposition left against medical advice (07) | DRG 304 ==
LOC: J2C 04:28 → JICU 17:11 → J5S 01-27 20:36 → J6S 01-29 09:15
PROVIDERS: ADMIT Family Medicine; ATTEND Family Medicine
PROC: 0SG1071 Fusion of 2 or more Lumbar Vertebral Joints with Autologous Tissue Substitute, Posterior Approach, Posterior Column, Open Approach (ICD-10-PCS; 2022-01-25)
PROC: 0SB20ZZ Excision of Lumbar Vertebral Disc, Open Approach (ICD-10-PCS; 2022-01-25)
PROC: 0QH304Z Insertion of Internal Fixation Device into Left Pelvic Bone, Open Approach (ICD-10-PCS; 2022-01-25)
PROC: 0QH204Z Insertion of Internal Fixation Device into Right Pelvic Bone, Open Approach (ICD-10-PCS; 2022-01-25)
PROC: 0SG3071 Fusion of Lumbosacral Joint with Autologous Tissue Substitute, Posterior Approach, Posterior Column, Open Approach (ICD-10-PCS; 2022-01-25)
PROC: 0SB40ZZ Excision of Lumbosacral Disc, Open Approach (ICD-10-PCS; 2022-01-25)
PROC: 4A10X4G Monitoring of Central Nervous Electrical Activity, Intraoperative, External Approach (ICD-10-PCS; 2022-01-25)
PROC: 30233N1 Transfusion of Nonautologous Red Blood Cells into Peripheral Vein, Percutaneous Approach (ICD-10-PCS; 2022-01-25)
PROC: 0SG00AJ Fusion of Lumbar Vertebral Joint with Interbody Fusion Device, Posterior Approach, Anterior Column, Open Approach (ICD-10-PCS; principal; 2022-01-25 08:00)
DX: T84.226A Displacement of internal fixation device of vertebrae, initial encounter (principal); M96.0 Pseudarthrosis after fusion or arthrodesis; D62 Acute posthemorrhagic anemia; J42 Unspecified chronic bronchitis; F17.210 Nicotine dependence, cigarettes, uncomplicated; M54.12 Radiculopathy, cervical region; E03.9 Hypothyroidism, unspecified; E04.1 Nontoxic single thyroid nodule
CPT/HCPCS: 36415; 36430; 72100-TC-FY; 76000-TC-FY; 80048; 80053; 82728; 83540; 83550; 83735; 84100; 84443; 85025; 85027; 85610; 86850; 86900; 86901; 86922; 93005; 93010; 94010; 94760; 97116-GP; 97162-GP; C1713; C1889; P9058

== ENCOUNTER 2023-03-31 21:51 | Emergency (ER) | payer BC, OTHER ==
[2023-03-31 22:04] VITALS: RESP 16; BMI 21.5
[2023-04-01] MEDS ORDERED: morphine CARPU-JECT 2 MG/1 ML DISP.SYRIN IM ONE (00:16)
[2023-04-01 01:27] VITALS: BP 129/89; PULSE 83; TEMP 97.5
== END 2023-04-01 01:59 | disposition home or self-care (01) ==
LOC: JERFT 21:51 → JER 21:51
PROC: 3E023GC Introduction of Other Therapeutic Substance into Muscle, Percutaneous Approach (ICD-10-PCS; principal; 2023-04-01)
DX: M54.2 Cervicalgia (principal); M25.511 Pain in right shoulder; G89.4 Chronic pain syndrome
CPT/HCPCS: 99284-25